=== PATIENT | female | born 1980 | race Hispanic/Latino ===

== ENCOUNTER 2017-09-29 09:29 | Outpatient (CLI) | payer MEDICAID ==
--- NOTE | 2017-09-29 14:22 | Magnetic Resonance Report ---
BILATERAL BREAST MRI WITHOUT AND WITH CONTRAST: 09/29/17 09:29:00 CLINICAL: Left breast pain and enlargement. Recent mammograms demonstrated an oval circumscribed 14 x 8 mm mass in the inner left breast at the cleavage. COMPARISON:09/21/17 [facility] and 08/24/17 [facility]. TECHNIQUE: Axial 1.0-mm T1 without, axial high resolution 2.0-mm T2 and axial 1.0-mm dynamic Vibrant high-resolution postcontrast T1 fat saturation sequences on a 1.5 [place] magnet. The examination was performed with an 8 channel dedicated [place] breast coil. Post processing with CAD and subtraction was performed on an [employer] workstation. 18.0 cc of Multihance was injected without incident for the contrast portion of the exam. Consent was obtained prior to the administration of the contrast. FINDINGS: Right: Moderate background parenchymal enhancement. No mass or suspicious enhancement of the right breast. No suspicious lymph nodes. Left: Moderate background parenchymal enhancement. No enhancing mass and no suspicious enhancement of the left breast. A short portion of a superficial inner vein at the chest wall is hyperintense on T2 and measures approximately 14 x 5 mm. The patent vein is narrowed in the center of the T2 hyperintense lesion and it correlates with the mammographic finding. Findings are consistent with a short nonobstructive thrombus in a superficial vein with recanalization of the vein. No suspicious left axillary or left internal mammary lymph nodes. IMPRESSION: 1. A small recanalized thrombus in a superficial left inner chest wall vein correlates with the previous mammographic finding. Is also likely would explain recent left breast enlargement and left breast pain. 2. No suspicious findings. 3. Negative right breast. BI-RADS 2 -- Benign
== END 2017-09-29 09:30 | disposition home or self-care (01) ==
LOC: SPVIMAG 09:29
PROVIDERS: ATTEND Surgery
DX: I82.890 Acute embolism and thrombosis of other specified veins (principal); N64.4 Mastodynia; N62 Hypertrophy of breast
CPT/HCPCS: A9577; C8908; 77059